=== PATIENT | female | born 1985 | race Caucasian/White ===

== ENCOUNTER → 2023-06-17 16:14 | Outpatient (REF) | payer OTHER, SELFPAY | LOC: HWWDC 16:14 | PROVIDERS: ATTENDING PHYSICIAN Obstetrics & Gynecology Gynecology | DX: Z12.31 Encounter for screening mammogram for malignant neoplasm of breast (principal) | CPT/HCPCS: 77063; 77067 ==

== ENCOUNTER → 2024-12-16 13:06 | Outpatient (REF) | payer OTHER, SELFPAY | LOC: HWWDC 13:06 | PROVIDERS: ATTENDING PHYSICIAN Obstetrics & Gynecology Gynecology | DX: Z12.31 Encounter for screening mammogram for malignant neoplasm of breast (principal) | CPT/HCPCS: 77063; 77067 ==